=== PATIENT | female | born 1960 | race Caucasian/White ===

== ENCOUNTER 2018-07-22 18:27 | Emergency (ER) | payer OTHER ==
[~2018-07-22] VITALS: Ht 170.2 cm; Wt 59.0 kg
--- NOTE | 2018-07-22 18:30 | NUR ---
PT BIBRA FOR BILATERAL FOOT PAIN/REDNESS/BLISTER, PT AAXO4, RESPIRATIONS EVEN AND UNLABORED, NO SOB, SKIN W/D TO TOUCH, NAD NOTED, PENDING ER PROVIDER EVAL
[2018-07-22] MEDS ORDERED: ACETAMINOPHEN 325 MG TABLET PO ONE (19:00)
[2018-07-22 20:39] VITALS: BP 112/69
--- NOTE | 2018-07-22 20:40 | NUR ---
PT LEFT IN STABLE CONDITON, AMBULATORTY WITH STEADY GAIT; PT PROVIDED WITH HOMELESS PACKET, VERBALIZES UNDERSTANDING, PT PROVIDED WITH BUS PASS CARD.
== END 2018-07-22 20:42 | disposition home or self-care (01) ==
LOC: ER 18:28
DX: B35.3 Tinea pedis (principal); Z60.2 Problems related to living alone
CPT/HCPCS: 99283; A4606; Z7610